=== PATIENT | female | born 1975 | race Caucasian/White ===

== ENCOUNTER 2019-01-10 11:54 | Observation (INO) ==
[~2019-01-10 11:54] MED LIST: Ropivacaine/PF 0.5% 24.62 ML, EPINEPHrine 0.25 MG, Ketorolac 15 MG, Water for inj. (ste... IR ONE
--- NOTE | 2019-01-10 12:04 | Anesthesia Evaluation PreOp ---
Date of Encounter: 01/10/19 Time of Encounter: 12:02 - Past History Planned Operation: Right robotic total knee arthroplasty Cardiac History: HTN Pulmonary History: Denies Any Significant HX DELICATESSEN CLERK History: Other (anxiety, depression) Other Medical History: GERD Anesthesia History: No Prior Anesthetic Complications, Past Anesthesia (R knee scope) Test: Negative (01/03/19) Alcohol Use: none Drug use: none Medications and Allergies Clindamycin [Cleocin] 150 mg PO Q6HR #7 capsule 07/25/18 [Rx] Diclofenac Sodium 07/25/18 [History] Etodolac 07/25/18 [History] Ibuprofen [Motrin] 600 mg PO Q8HR #20 tab 07/25/18 [Rx] Lexapro 07/25/18 [History] Metoprolol Tartrate 07/25/18 [History] Prilosec 07/25/18 [History] Aspirin Enteric Coated [Aspirin EC] 325 mg PO BID #20 tablet. 01/10/19 [Rx] Ibuprofen [Motrin] 800 mg PO Q8HR #30 tablet 01/10/19 [Rx] OxyCODONE Immed Rel [Roxicodone 5 MG] 5 mg PO Q6HR PRN 5 Days #20 tablet 01/10/19 [Rx] Allergy/AdvReac Type Severity Reaction Status Date / Time No Known Allergies Allergy Verified 07/25/18 08:12 - Meds/Allergy Pre-op Review Medications Reviewed: Yes Allergies Reviewed: Yes Beta Blockers on Current Med List: Yes Anesthesia Results - Labs Laboratory Tests 01/03/19 01/03/19 01/03/19 09:45 09:45 09:45 WBC 7.7 Hgb 13.2 Hct 39.1 Plt Count 257 PT 10.9 INR 1.0 APTT 31.6 Sodium 140 Potassium 4.0 Chloride 107 Carbon Dioxide 22 L BUN 12 Creatinine 0.74 Serum , Qual 01/03/19 09:45 WBC Hgb Hct Plt Count PT INR APTT Sodium Potassium Chloride Carbon Dioxide BUN Creatinine Serum , Qual Negative - Imaging EKG: report reviewed (SINUS BRADYCARDIA WITH SINUS ARRHYTHMIA Electronically Signed On 01-06-2019 6:06:47 EDT by Josiah Amos) Anesthesia Exam O2 Sat Height 1.73 m Weight 102.965 kg O2 Sat by Pulse Oximetry 97 Vital Signs Temp Pulse Resp BP Pulse Ox 98.2 F 53 18 141/93 97 01/10/19 12:09 01/10/19 12:09 01/10/19 12:09 01/10/19 12:09 01/10/19 12:09 Weight: 102kg NPO (# of Hours): >8 - HEENT Pupil (Motor): Pupils equal, EOMI Mallampati: III Teeth: Poor dentition Oral Opening: Greater than 3 - DELICATESSEN CLERK LOC: Oriented DELICATESSEN CLERK Motor: Normal RUE, Normal LUE, Normal RLE, Normal LLE, Normal Face DELICATESSEN CLERK Sensory: Normal: RUE, LUE, RLE, LLE, Face - Cardiac Rhythm: Regular - Pulmonary Breath Sounds: bilateral Clear Respiratory Effort: Symmetrical Anesthesia Assess/Plan ASA Score: 2 Level of consciousness: Cooperative Anesthetic Plan: General (plan b), MAC, Spinal (spinal) Regional Nerve Block Plan: Adductor canal (Right) Monitoring Plan: Standard Monitors Recovery Plan: PACU
[2019-01-10] MEDS ORDERED: Gabapentin 300 MG CAPSULE PO ONE (12:05)
[2019-01-10] MEDS ORDERED: Acetaminophen IV 1,000 MG/100 ML INFUS..BTL IVPB ONE (12:05)
[2019-01-10] MEDS ORDERED: Celecoxib 100 MG CAPSULE PO ONE (12:05)
[2019-01-10] MEDS ORDERED: *HR* OxyCODONE ER (12 HR) 10 MG TABLET PO ONE (12:05)
[2019-01-10] MEDS ORDERED: Ringers Solution, Lactated 1,000 ML IVC SCH ×2 (12:15→12:45)
[2019-01-10] MEDS ORDERED: CeFAZolin Syr 2,000MG/20 ML 2,000 MG/20 ML SYRINGE IVPB ONE (12:15)
[2019-01-10] MEDS ORDERED: *HR* HYDROmorphone (PF) 1 MG/ML SYRINGE IVP PRN (12:31)
[2019-01-10] MEDS ORDERED: *HR* Promethazine 25 MG/ML VIAL IVP PRN ×2 (12:31→16:44)
[2019-01-10] MEDS ORDERED: *HR* Meperidine 25 MG/ML SYRINGE IVP PRN (12:31)
[2019-01-10] MEDS ORDERED: Ondansetron 4 MG/2 ML VIAL IVP ONE (12:31)
--- NOTE | 2019-01-10 12:35 | History & Physical Report ---
Date of Encounter: 01/10/19 Time of Encounter: 12:35 24 Hour HP Update - Instructions Instructions: If the History and Physical is less than 30 days old and was completed prior to A.M. admission and or procedure and has NOT been updated on calendar day of procedure please complete this update prior to performing procedure. - Update Patient reports changes in Medical Condition: No Changes in examination, assessment, or condition: No Changes in Medication: No Preop tests/diagnostics Reviewed: Yes Surgery Remains Indicated: Yes Consent for Planned Operative Procedure(s) Verified: Yes - Pre-Operative Checklist Preoperative Checklist Indicated: No Prophylactic Antibiotic Ordered: Yes Is VTE Prophylaxis Indicated?: Yes
[2019-01-10] MEDS ORDERED: Lidocaine -MPF 2% 2 ML VIAL ONE ×2 (13:03→16:07)
[2019-01-10] MEDS ORDERED: *HR* Midazolam HCl 2 MG/2 ML VIAL ONE (13:03)
[2019-01-10] MEDS ORDERED: Dexamethasone 4 MG/ML VIAL ONE (13:03)
[2019-01-10] MEDS ORDERED: Ondansetron 4 MG/2 ML VIAL ONE (13:03)
[2019-01-10] MEDS ORDERED: *HR* FentaNYL (PF) 100 MCG/2 ML VIAL ONE (13:03)
[2019-01-10] MEDS ORDERED: Tranexamic Acid 1,000 MG/10 ML VIAL ONE (13:23)
[2019-01-10] MEDS ORDERED: ROPIVACAINE/PF/NS SYRINGE INTRAART ONE (13:41)
[2019-01-10] MEDS ORDERED: Ethanol\\Acetic Acid\\Na Ace\\Ben 1,000 ML IRRIG.SOLN IR ONE (14:05)
[2019-01-10] MEDS ORDERED: Propofol 500 MG/50 ML INFUS..BTL ONE (14:10)
--- NOTE | 2019-01-10 14:30 | Anesthesia Procedures ---
Date of Encounter: 01/10/19 Time of Encounter: 14:15 Procedures: Anesthesia - Epidural/Spinal Patient ID/Chart reviewed: Yes Patient examined: Yes Supplemental Oxygen: Nasal Cannula Supplemental Oxygen Rate (L/min): 2 Sedation: Versed (mg): 2 Sedation: Fentanyl (mcg): 100 Site Prep: 0.5% Chlorhexidine/Alcohol Patient position: upright Local Anesthetic: Lidocaine 1% Interspace Used: L3-L4 Loss of Resistance (HALLEY): No Blood: No CSF: Yes Paresthesia: No Spinal Needle Gauge: 22 Spinal Dose: 12.5 mg bupivacaine Procedure: right knee total robotic - Nerve Block Procedure Date: 01/10/19 Time: 14:20 Checklist: Correct Patient Identifier, Correct procedure, History checked Correct side: Right Blood Thinner: No Monitor Applied: EKG, BP, Pulse Oximetry Supplemental Oxygen via Nasal Cannula (L/min): 2 Indication: Post Op Analgesia Block Type: Other (adductor canal) Catheter placed: No Sterile Technique: Yes Ultrasound used: Yes Anatomy identified: Yes Visual spread of Local: Yes Neuro Stimulation: No Blood on Needle Aspiration: No Smooth Injection of Local: Yes Pain with Injection of Local: No Prep: Chlorhexadine Needle: 21 x 100 mm Stimuplex Local: Ropivacaine (0.25% ) Volume (cc): 15 Number of Attempts: 1 Complications: None/effective block Vitals: Vital Signs/O2 Sat, Most Current Temp Pulse Resp BP Pulse Ox 98.2 F 53 18 141/93 97 01/10/19 12:17 01/10/19 12:17 01/10/19 12:17 01/10/19 12:17 01/10/19 12:17
[2019-01-10] MEDS ORDERED: *HR* PHENYLEPHRINE 1,000 MCG/10 ML SYRINGE IVP ONE (14:59)
--- NOTE | 2019-01-10 15:35 | Discharge Summary ---
<Candido Blood - Last Filed: 01/10/19 15:33> Orders not resulted at time of discharge: Pending orders 01/10/19 08:33 XR knee RT 1-2V [XR] Routine Hemoglobin and Hematocrit [HEME] Routine 01/10/19 12:05 US anesthesia pain block [US] Stat 01/10/19 15:18 Surgical Pathology [PTH] Routine Date of Encounter: 01/10/19 - Discharge Diagnosis (1) Hypertension Priority: Secondary Status: Chronic Qualifiers: Hypertension type: unspecified secondary hypertension Qualified Code(s): I15.9 - Secondary hypertension, unspecified; I15 - Secondary hypertension (2) Arthritis of right knee Priority: Primary Status: Chronic (3) Status post total right knee replacement not using cement Priority: Primary Status: Acute (4) Obesity (BMI 30.0-34.9) Priority: Secondary Status: Chronic - Hospital Course Hospital course: Ms. Roberts is a 43 year old female - Time Spent with Patient Total time spent providing and/or coordinating discharge services: - Discharge Medications Prescriptions: New Ibuprofen [Motrin] 800 mg PO Q8HR #30 tablet OxyCODONE Immed Rel [Roxicodone 5 MG] 5 mg PO Q6HR PRN 5 Days #20 tablet PRN Reason: Pain Aspirin Enteric Coated [Aspirin EC] 325 mg PO BID #20 tablet. Continued Metoprolol Succinate [Toprol Xl] 100 mg PO DAILY #0 Etodolac [Lodine] 400 mg PO BID #0 Omeprazole Magnesium [Prilosec Otc] 20 mg PO DAILY #0 Ergocalciferol (VITAMIN D2) [Vitamin D2] 50,000 units PO TU Oxybutynin [Ditropan] 5 mg PO DAILY Sertraline [Zoloft] 50 mg PO DAILY Home Medications: Etodolac [Lodine] 400 mg PO BID #0 07/25/18 [History] Metoprolol Succinate [Toprol Xl] 100 mg PO DAILY #0 07/25/18 [History] Omeprazole Magnesium [Prilosec Otc] 20 mg PO DAILY #0 07/25/18 [History] Aspirin Enteric Coated [Aspirin EC] 325 mg PO BID #20 tablet. 01/10/19 [Rx] Ergocalciferol (VITAMIN D2) [Vitamin D2] 50,000 units PO TU 01/10/19 [History] Ibuprofen [Motrin] 800 mg PO Q8HR #30 tablet 01/10/19 [Rx] OxyCODONE Immed Rel [Roxicodone 5 MG] 5 mg PO Q6HR PRN 5 Days #20 tablet 01/10/19 [Rx] Oxybutynin [Ditropan] 5 mg PO DAILY 01/10/19 [History] Sertraline [Zoloft] 50 mg PO DAILY 01/10/19 [History] Allergies/Adverse Reactions: Allergy/AdvReac Type Severity Reaction Status Date / Time No Known Allergies Allergy Verified 01/10/19 12:54 Primary care physician: Harriet Wynne CNP - Patient Status Disposition: Home Health Service Condition: Good - Discharge Instructions Follow Up With: Shiloh Bowens PAC [Physician Building Construction Estimator] - 01/17/19 1:30 pm Candido Blood MD [Partnered Physician] - 02/05/19 4:40 pm Additional Instructions: Discharge Instructions: Total Knee Replacement Please call [facility] ([phone]), your Primary Care Physician, or report to the Emergency Room if you have any of the following symptoms: Nausea, vomiting, fever greater that 101.5, swelling, chest pain, shortness of breath, increased pain/redness/drainage/odor for your incision site, numbness/tingling, or any other concerning symptoms. ACTIVITY:Weight-bearing as tolerated. You may progress off support (crutches or walker) as tolerated. Incentive Spirometer 10 times an hour. MEDICATIONS: Upon discharge resume your home medications. Take all the medications as prescribed. Take a stool softener if taking narcotic pain medications. Stool softeners are only effective if you drink enough fluids. Drin k 6-8 glass of water or fluids a day, unless this is not allowed for another health problem. Despite using stool softeners, if you haven't had a bowel movement in 3 days, please switch to a gentle laxative. Gentle laxatives are sold over the counter. You should have a bowel movement within 24 hours, if not call the office. You will be discharged from the hospital with a prescription for pain me dication. You are encouraged to decrease the use of narcotic pain medication as tolerated. Should you require a refill, please call the office. [facility] prescribes narcotic pain medication for only 4-6 weeks after surgery. If you require pain medication beyond this time period, you may be referred to your Primary Care Physician or to the Pain Clinic for further evaluation. Plan ahead for refills on pain medication as many narcotics either need to be picked up at the office or mailed. It is best to call 48-72 hours in advance of needing a prescription refill so you don't run out of medication. To help control the post-operative pain, you may take NSAIDs (Aleve,Advil, Motrin, Ibuprofen, Naprosyn) or Tylenol as prescribed on the bottle in addition to the pain medication. ANTICOAGULATION (blood thinners): Continue your Aspirin, Lovenox or Coumadin as prescribed to help prevent a blood clot in the leg or in the lungs. As long as your incision remains dry and you tolerate the NSAIDs (Aleve, Advil, Motrin, ibuprofen, naprosyn), it is OK to use the NSAIDS while you are taking your anticoagulation medication. Should your incision start to drain, stop the NSAID and contact our office. Common symptoms of blood clot in the legs include: localized pain, swelling, calf tenderness, redness or discoloration of the skin. Blood clot in the lung symptoms include: shortness of breath, rapid pulse, sweating, and chest pain that worsens with deep breathing, coughing up blood, lightheadedness, feelings of anxiety. If you experience any of these symptoms notify your physician immediately, go to the emergency room, or if having trouble breathing, call 911. WOUND CARE: Leave the dressing on for 7 to 10days. You may change the dressing if it becomes saturated greater than 50%. Do not get the dressing wet at anytime. Wash your hands with antibacterial soap, rinse and dry prior to any wound care. If you have jesus the visiting nurse or rehab facility can remove the stapes 10-14 days after surgery and place steri-strips across the wound. Leave the steri-strips in place until they fall off on their won. You may let water from the shower run on top of the steri-strips. If you do not have a visiting nurse or rehab facility, you will need to return to the office at 10-14 days for the jesus to be removed. If you have itching or redness around the dressing call the office. FOLLOW-UP: Please follow up with your surgeon in the orthopedic clinic in 4 weeks from the day of surgery. If you have jesus that need to be removed, you will need to come back to the office in 10-14 days from the day of surgery. <Shiloh Romero - Last Filed: 01/13/19 16:40> Orders not resulted at time of discharge: Pending orders 01/10/19 12:05 US anesthesia pain block [US] Stat 01/10/19 15:18 Surgical Pathology [PTH] Routine Date of Encounter: 01/13/19 Time of Encounter: 15:12 - Discharge Diagnosis (1) Status post total right knee replacement not using cement Priority: Primary Status: Acute (2) Arthritis of right knee Priority: Primary Status: Chronic (3) Hypertension Priority: Secondary Status: Chronic Qualifiers: Hypertension type: unspecified secondary hypertension Qualified Code(s): I15.9 - Secondary hypertension, unspecified; I15 - Secondary hypertension (4) Obesity (BMI 30.0-34.9) Priority: Secondary Status: Chronic - Hospital Course Hospital course: Ms. Roberts is a 43 year old female status post right TKR 01/10/19 with medical histroy of HTN and obesity. She participated in therapy. Discharge was held an extra day due to pain control. She was deemed stable at time of discharge and will follow up in [facility] office in 1 week. - Time Spent with Patient Total time spent providing and/or coordinating discharge services: Date of admission: 01/12/19 08:57 Primary care physician: Harriet Wynne CNP Consults: 01/10/19 16:44 Consult to Nutrition [CONS] Routine Comment: Consulting Provider: NUTRITION Reason for Dietary Consult: Other Other:: Proper nutrition to facilitate wound healing Consult to Occupational Therapy [CONS] Routine Comment: Evaluate, develop and implement POC Reason for Consult: post knee surgery Does patient have active BEDREST order?: No Is patient medically & hemodynamically stable?: Yes Consult to Orthopedic Navigator [CONS] [CONS] Routine Consult to Physical Therapy [CONS] Routine Comment: Evaluate, develop and impliment POC Reason for Consult: post knee surgery Does patient have active BEDREST order?: No Is patient medically & hemodynamically stable?: Yes Consult to Artificial Pearl Maker [CONS] Routine Reason for SW Consult: post op joint replacement RT Post Op Consult [CONS] Routine Discharging clinician: Candido Blood Anticipated date of discharge: 01/12/19 Labs on day of discharge: Labs from last 24 hours 01/12/19 08:17 POC Glucose 91 - Impressions ITS Impressions Knee X-Ray 01/10/19 08:33 IMPRESSION: Status post right knee arthroplasty without evidence of acute postoperative complication D/ / Sarabjit Nunez MD / Sarabjit Nunez MD Interpreting Provider: Sarabjit Nunez MD - Patient Status Functional capacity at discharge: uses cane/walker Overall status at discharge: patient is back to baseline - Diet and Activity Activity: ambulate only with your walker, as per physical therapy Diet: advance to your usual diet
--- NOTE | 2019-01-10 15:37 | Orthopedic Operative Note ---
Date of procedure: 01/10/19 Pre-op diagnosis: Right knee arthritis Post-op diagnosis: same Procedure: Procedure: Right robotic-assisted Total knee replacement Estimated blood loss: 200 cc Hardware: Metal and polyethylene replacement. Press-fit Cameron Femur: 4 Tibia:3 PS insert: 9 Patella: 36 Exam Under anesthesia: 2 degree flexion contracture 8 degree varus as calculated by the robot full flexion and no instability Procedural Notes: Grade 4 arthritic changes patellofemoral joint medial compartment Operative procedure: The patient was brought to the operating room and placed on the operating room table. After general anesthesia was administered the operative knee was examined. Findings were noted in the exam under anesthesia. The operative extremity was prepped and draped in sterile surgical fashion. The patient received IV antibiotics prior to skin incision. A standard midline incision was made centered over the patella. The incision was made through the skin and subcutaneous tissue. A medial parapatellar tendon approach was performed. Care was taken to preserve tissue along the medial aspect of the patella. And to protect the patella tendon. The deep MCL was released off the medial tibia. The infra patella fat pad was excised. The patella was everted and cut was made at the level of the insertion of the quadriceps and patella tendon. The patella was sized the guide was seated and the lug holes are drilled. Knee was brought into flexion. Patient noted to have grade 4 arthritic changes patellofemoral joint medial compartment Steinmann pins were placed in the tibia and the femur for the tibial and femoral arrays respectively. Checkpoints were also placed in the tibia and the femur for calculation purposes. The knee including the femur and the tibial registered. Osteophytes, ACL and PCL were excised at this point. Extension and flexion were assessed with a valgus stress components were adjusted on the computer to balance the knee. Femoral cuts were made first with robotic assistance, these included the anter ior cut posterior cuts chamfer cuts. Tibial cut was then performed with robotic assistance as well. Bone fragments were removed, as well as the medial and lateral meniscus. The size 4 femoral guide was seated box cut was made lug holes are drilled. The size 3 tibial tray was seated and prepared with the fin cutter. Trial reduction with the 9 PS Bess revealed extension of 0 degree and 1 degree varus full flexion. No varus valgus instability. Trial reduction revealed excellent patella tracking. All trial components were removed all bony surfaces were irrigated. The Tibia was seated followed by the femur, The selected Bess size was seated and secured patella. Patient had similar findings for motion and stability. The knee was then irrigated out with 2 L of pulse irrigation. The extensor mechanism was closed with #2 FiberWire suture and #2 PDS suture. The subcutaneous tissue was then irrigated and closed deep with #1 PDS suture superficially with 0 PDS suture and skin was closed with zip tie The patient was then placed in a sterile dressing and a postoperative brace extubated and transferred to recovery room in stable condition. Anesthesia: spinal Surgeon: Candido Blood Was there an medical administrative assistant present: No Estimated blood loss (cc): 200 Condition: stable Disposition: PACU
--- NOTE | 2019-01-10 15:59 | Physician Discharge Referral ---
Home Health/Hosp Referral Info Transfer to: Home Health Attending Provider: Dr. Blood - Diagnosis (1) Status post total right knee replacement not using cement Priority: Primary Status: Acute (2) Arthritis of right knee Priority: Primary Status: Chronic (3) Hypertension Priority: Secondary Status: Chronic (4) Obesity (BMI 30.0-34.9) Priority: Secondary Status: Chronic - Respiratory Orders None Smoking Cessation: Smoking cessation has been advised. For more information, call the [place] Tobacco Quit Line at 4-614-OKTN-NOW. - Diet/Nutrition Diet/Nutrition Orders: Regular - Activity Activity Orders: Ambulate, Chair, Walker - Services Needed Following services are medically necessary services: Nursing, Home Health Aide, Physical Therapy, Occupational Therapy Home Care Orders: Knee Continuity: Opsite dressing, leave intact until first post-operative visit. If dressing becomes >50% saturated, contact office, remove dressing and place appropriate dressing in its place. Do not allow for dressing to get wet. Zipline/Hayden in place, plan to remove at post-operative day #14-16. Total Joint Precautions x 6 weeks Apply cold therapy wrap 3-6x/day for 20 minutes at a time. Encourage ambulation throughout the day Use Incentive spirometer 10x/hour. Elevate affected extremity above heart as tolerated. Brace: Wear knee immobilizer at night x 2 weeks. - Transfer Medications Home Medications: Etodolac [Lodine] 400 mg PO BID #0 07/25/18 [History] Metoprolol Succinate [Toprol Xl] 100 mg PO DAILY #0 07/25/18 [History] Omeprazole Magnesium [Prilosec Otc] 20 mg PO DAILY #0 07/25/18 [History] Aspirin Enteric Coated [Aspirin EC] 325 mg PO BID #20 tablet. 01/10/19 [Rx] Ergocalciferol (VITAMIN D2) [Vitamin D2] 50,000 units PO TU 01/10/19 [History] Ibuprofen [Motrin] 800 mg PO Q8HR #30 tablet 01/10/19 [Rx] OxyCODONE Immed Rel [Roxicodone 5 MG] 5 mg PO Q6HR PRN 5 Days #20 tablet 01/10/19 [Rx] Oxybutynin [Ditropan] 5 mg PO DAILY 01/10/19 [History] Sertraline [Zoloft] 50 mg PO DAILY 01/10/19 [History] Allergies/Adverse Reactions: Allergy/AdvReac Type Severity Reaction Status Date / Time No Known Allergies Allergy Verified 01/10/19 12:54 Certification: Further, I certify that my clinical findings support that this patient is homebound (i.e. absences from home require considerable and taxing effort and are for medical reasons or zoroastrianism services or infrequently or short duration when for other reasons) because: Homebound Reason: Post-surgery restriction and or conditions limit ability to leave home Attestation: My signature below is to certify that this patient is under my care and that I, or nurse practitioner, or a physician orthopaedic physician assistant working with me, has a lidx-st-nuil encounter with this patient.
[2019-01-10 16:24] LABS: Hemoglobin 12.3 g/dL (11.5-15.4)
[2019-01-10] MEDS ORDERED: MOM Conc 10 ML UD.LIQ PO PRN (16:44)
[2019-01-10] MEDS ORDERED: traMADol 50 MG TABLET PO PRN (16:44)
[2019-01-10] MEDS ORDERED: Naloxone 0.4 MG/ML INJ IVP PRN (16:44)
[2019-01-10] MEDS ORDERED: Ondansetron 4 MG/2 ML VIAL IVP PRN (16:44)
[2019-01-10] MEDS ORDERED: Sennosides 8.6 MG TABLET PO PRN (16:44)
[2019-01-10] MEDS ORDERED: HYDROcodone BIT/Homatropine 5 MG TABLET PO PRN (16:44)
[2019-01-10] MEDS ORDERED: Temazepam 15 MG CAPSULE PO PRN (16:44)
--- NOTE | 2019-01-10 16:51 | Anesthesia Evaluation Post Op ---
Date of Encounter: 01/10/19 Time of Encounter: 16:50 - Vital Signs Vital Signs: Vital Signs/O2 Sat, Most Current Temp Pulse Resp BP Pulse Ox 97.7 F 68 14 132/82 97 01/10/19 16:44 01/10/19 16:44 01/10/19 16:44 01/10/19 16:44 01/10/19 16:44 - Lungs Lungs: Clear Ascult./Percussion - Airway Airway: Non-obstructed - Cardiovascular Regular Rate - Mental Status Mental Status: Asleep with brisk response to light stimulation - Pain Pain Scale: 0 Pain Scale used: Numeric (1 - 10) - Nausea Vomiting Nausea Vomiting: Not Present - Hydration Hydration: Ice chips, Has not voided - Discharge PostOp Status: Transfer Patient to floor
[2019-01-10] MEDS: Ketorolac 30 MG/ML VIAL IVP SCH (17:54)
[2019-01-10] MEDS: Ascorbic Acid 500 MG TABLET PO SCH (18:11)
[2019-01-10] MEDS: Ringers Solution, Lactated 1,000 ML IVC SCH (18:53)
[2019-01-10] MEDS: *HR* Enoxaparin 30 MG/0.3 ML SYRINGE SQ SCH (19:56)
[2019-01-10] MEDS ORDERED: ETODOLAC 400 MG PO SCH (21:00)
[2019-01-11] MEDS: Ringers Solution, Lactated 1,000 ML IVC SCH (00:32)
[2019-01-11] MEDS: Ketorolac 30 MG/ML VIAL IVP SCH ×5 (00:32→23:40)
[2019-01-11 05:10] LABS: Basophils % 0.1 %; Eosinophils % 0.1 %; Hematocrit 32.8 % (35.3-44.9); Hemoglobin 11.3 g/dL (11.5-15.4); Immature Granulocytes % 0.5 % (0-4); Lymphocytes # 1.9 K/mcL (0.6-4.6); Lymphocytes % 12.5 %; Mean Corpuscular HGB Conc 34.5 g/dL (31.6-35.5); Mean Corpuscular Hemoglobin 30.4 pg (28.0-33.3); Mean Corpuscular Volume 88.2 fL (83.0-100.0); Mean Platelet Volume 8.9 fL (9.4-12.4); Monocytes # 0.9 K/mcL (0.0-1.3); Monocytes % 5.7 %; Neutrophils # 12.3 K/mcL (1.6-8.9); Platelet Count 260 K/mcL (140-400); Red Blood Count 3.72 M/mcL (3.82-4.97); Red Cell Distribution Width 11.9 % (11.5-14.5); Segmented Neutrophils % 81.1 %; White Blood Count 15.1 K/mcL (4.3-11.1)
[2019-01-11] MEDS: *HR* Enoxaparin 30 MG/0.3 ML SYRINGE SQ SCH ×2 (05:19→16:16)
[2019-01-11 05:26] LABS: BUN/Creatinine Ratio 18 (6-26); Blood Urea Nitrogen 12 mg/dL (6-20); Calcium 8.6 mg/dL (8.6-10.3); Carbon Dioxide 24 mEq/L (23-29); Chloride 107 mEq/L (98-107); Glucose 139 mg/dL (70-105); Osmolality,Calculated 286 (280-300); Potassium 4.1 mEq/L (3.5-5.1); Sodium 137 mEq/L (136-145); eGFR For African Americans > 60 (> 60); eGFR For Non-African Americans > 60 (> 60)
[2019-01-11] MEDS: *HR* OxyCODONE Immed Rel 5 MG TABLET PO PRN ×3 (07:46→16:16)
[2019-01-11] MEDS: Multivit/Ca/Min/Fe/FA 1 TAB TABLET PO SCH (07:46)
[2019-01-11] MEDS: Ascorbic Acid 500 MG TABLET PO SCH ×2 (07:46→16:16)
[2019-01-11] MEDS: Metoprolol XL (24 HR) Succ 50 MG TAB.ER.24H PO SCH (07:46)
[2019-01-11] MEDS ORDERED: Acetaminophen IV 1,000 MG/100 ML INFUS..BTL IVPB SCH (18:33)
[2019-01-11] MEDS ORDERED: Acetaminophen IV 1,000 MG/100 ML INFUS..BTL IVPB PRN (19:32)
[2019-01-11] MEDS: *HR* HYDROcodone/Acet 10/325 mg TABLET PO PRN (19:35)
[2019-01-11] MEDS: Gabapentin 300 MG CAPSULE PO SCH (20:32)
[2019-01-12] MEDS ORDERED: Acetaminophen IV 1,000 MG/100 ML INFUS..BTL IVPB SCH
[2019-01-12] MEDS: Ketorolac 30 MG/ML VIAL IVP SCH (05:17)
[2019-01-12] MEDS: *HR* Enoxaparin 30 MG/0.3 ML SYRINGE SQ SCH ×2 (05:17→18:09)
[2019-01-12 09:15] LABS: Basophils % 0.2 %; Eosinophils % 0.3 %; Hematocrit 33.1 % (35.3-44.9); Hemoglobin 11.2 g/dL (11.5-15.4); Immature Granulocytes % 0.5 % (0-4); Lymphocytes % 19.8 %; Mean Corpuscular HGB Conc 33.8 g/dL (31.6-35.5); Mean Corpuscular Hemoglobin 30.8 pg (28.0-33.3); Mean Corpuscular Volume 90.9 fL (83.0-100.0); Mean Platelet Volume 8.9 fL (9.4-12.4); Monocytes # 0.7 K/mcL (0.0-1.3); Neutrophils # 7.3 K/mcL (1.6-8.9); Platelet Count 232 K/mcL (140-400); Red Blood Count 3.64 M/mcL (3.82-4.97); Red Cell Distribution Width 12.3 % (11.5-14.5); Segmented Neutrophils % 72.2 %; White Blood Count 10.1 K/mcL (4.3-11.1)
[2019-01-12 09:33] LABS: BUN/Creatinine Ratio 13 (6-26); Blood Urea Nitrogen 8 mg/dL (6-20); Calcium 8.5 mg/dL (8.6-10.3); Carbon Dioxide 27 mEq/L (23-29); Chloride 104 mEq/L (98-107); Glucose 111 mg/dL (70-105); Osmolality,Calculated 277 (280-300); Potassium 3.8 mEq/L (3.5-5.1); Sodium 134 mEq/L (136-145); eGFR For African Americans > 60 (> 60); eGFR For Non-African Americans > 60 (> 60)
[2019-01-12] MEDS: *HR* HYDROcodone/Acet 10/325 mg TABLET PO PRN ×2 (09:44→18:08)
[2019-01-12] MEDS: Gabapentin 300 MG CAPSULE PO SCH ×2 (09:45→15:42)
[2019-01-12] MEDS: Ascorbic Acid 500 MG TABLET PO SCH ×2 (09:45→18:09)
[2019-01-12] MEDS: Metoprolol XL (24 HR) Succ 50 MG TAB.ER.24H PO SCH (09:45)
[2019-01-12] MEDS: Multivit/Ca/Min/Fe/FA 1 TAB TABLET PO SCH (09:48)
[2019-01-12 15:51] VITALS: BP 142/88
== END 2019-01-12 19:36 | disposition home health service (06) ==
LOC: SAMDAY 11:54 → 3NENU 11:54
PROVIDERS: ADMIT Orthopaedic Surgery; ATTEND Orthopaedic Surgery